=== PATIENT | male | born 2000 | race Caucasian/White ===

== ENCOUNTER 2020-01-24 18:11 | Observation (INO) | payer OTHER ==
[~2020-01-24 18:11] MED LIST: Dexamethasone 20 MG/5 ML VIAL ONE; Ketorolac Tromethamine 30 MG/ML VIAL ONE; Ondansetron PF 4 MG/2 ML Vial ONE; PROPOFOL 200 MG/20 ML VIAL ONE; Succinylcholine Chloride 20 MG/ML 10 ml SYRINGE FS ONE; diphenhydrAMINE 50 MG/ML VIAL ONE
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
[2020-01-24] MEDS ORDERED: Midazolam HCl 2 mg/2 ml Vial ONE (19:32)
[2020-01-24] MEDS ORDERED: Fentanyl 250 MCG/5 ML VIAL ONE (19:32)
[2020-01-24] MEDS ORDERED: Bacitracin Zinc Ointment 30 gm TUBE ONE (19:36)
[2020-01-24] MEDS ORDERED: Bupivacaine 0.25% HCL 30 ML VIAL ONE (19:36)
[2020-01-24] MEDS ORDERED: Meperidine HCl/PF 25 MG/ML VIAL SLOW IVP PRN (21:04)
[2020-01-24] MEDS ORDERED: Promethazine HCl 25 MG/ML VIAL SLOW IVP PRN (21:04)
[2020-01-24] MEDS ORDERED: Ondansetron HCl/PF 4 MG/2 ML Vial IVP PRN (21:04)
[2020-01-24] MEDS ORDERED: Promethazine HCl 25 MG/ML VIAL IM PRN (21:04)
[2020-01-24] MEDS ORDERED: Zolpidem Tartrate 5 MG TAB PO PRN (21:10)
[2020-01-24] MEDS ORDERED: diphenhydrAMINE 50 MG/ML VIAL IVP PRN (21:10)
[2020-01-24] MEDS ORDERED: HYDROcodone/Acetaminophen 5/325 mg Tablet PO PRN (21:10)
[2020-01-24] MEDS ORDERED: Ondansetron PF 4 MG/2 ML Vial IVP PRN (21:10)
[2020-01-24] MEDS ORDERED: Promethazine 25 MG TAB PO PRN (21:10)
[2020-01-24] MEDS ORDERED: Morphine 4 MG/ML VIAL SLOW IVP PRN (21:10)
[2020-01-24] MEDS ORDERED: Docusate 100 MG CAP PO SCH (21:30)
[2020-01-24] MEDS: D5 1/2 NS w/20 mEq KCL 1,000 ML IV SCH (22:21)
[2020-01-24] MEDS: Ketorolac Tromethamine 30 MG/ML VIAL IVP SCH (22:21)
[2020-01-24 22:49] VITALS: BMI 23.3
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
--- NOTE | 2020-01-25 01:19 | OP ---
DATE OF PROCEDURE: 01/24/2020 PREOPERATIVE DIAGNOSIS: Left scrotal hematoma, possible testicular injury. POSTOPERATIVE DIAGNOSIS: Left scrotal hematoma. PROCEDURE PERFORMED: Scrotal exploration with evacuation of left scrotal hematoma. ANESTHESIA: General. COMPLICATIONS: None. BLOOD LOSS: 30 mL. FINDINGS: Testicle uninjured. DESCRIPTION OF PROCEDURE: After informed consent, the patient was taken to the operating room, transferred to the table under his own power. Anesthesia was established. A time-out was performed showing the correct patient, site, and procedure. Preoperative antibiotics were administered. He was prepped and draped in the supine position. I began by instilling 0.25% Marcaine along the median raphe and in the left spermatic cord. I then made a midline longitudinal incision and carried this down through dartos fascia with electrocautery. The left hemiscrotum was entered and blood clot evacuated. The subcutaneous scrotal tissue was edematous with significant hematoma. The left testicle was delivered into the operative field noting bruising along the tunica vaginalis. The tunica vaginalis was carefully opened and the testicle inspected noting no injuries or hematoma inside the tunica. The testicle was then delivered back into the tunica vaginalis, which was closed with 3-0 Vicryl in a running fashion. Subcutaneous tissues were copiously irrigated and a 0.25-inch Trish drain brought out through the dependent portion of the scrotum. Subcutaneous tissues were closed in 2 layers with Vicryl suture, and then skin was closed in an interrupted horizontal mattress fashion with 3-0 chromic. The drain site and the incision were dressed with antibiotic ointment, 4x4s, and tape. The patient was then awoken from anesthesia, transferred back to his hospital bed and taken to PACU in stable condition, where he will be admitted overnight. Job ID: [id number]
[2020-01-25] MEDS ORDERED: Docusate 100 MG CAP PO SCH (09:00)
[2020-01-25] MEDS: Ketorolac Tromethamine 30 MG/ML VIAL IVP SCH ×2 (09:11→12:00)
[2020-01-25] MEDS: D5 1/2 NS w/20 mEq KCL 1,000 ML IV SCH (09:13)
[2020-01-25 11:03] VITALS: BP 113/64; TEMP 98
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
== END 2020-01-25 12:25 | disposition home or self-care (01) ==
LOC: ERS 18:11 → SURG B 19:39
PROVIDERS: ADMIT Surgery; ATTEND Surgery
PROC: 0V9500Z Drainage of Scrotum with Drainage Device, Open Approach (ICD-10-PCS; principal; 2020-01-24)
DX: S30.22XA Contusion of scrotum and testes, initial encounter (principal); F17.290 Nicotine dependence, other tobacco product, uncomplicated; Z88.1 Allergy status to other antibiotic agents; V27.4XXA Motorcycle driver injured in collision with fixed or stationary object in traffic accident, initial encounter
CPT/HCPCS: 76870; 93976; 96361; 96374; 96375; G0378; J1100; J1200; J1885; J2250; J2270; J2405; J2704; J3010; J3480; S0020